=== PATIENT | male | born 1995 | race Caucasian/White ===

== ENCOUNTER 2023-01-15 20:49 | Emergency (ER) | payer OTHER ==
[2023-01-15] MEDS ORDERED: diphenhydrAMINE 50 MG/ML VIAL ONE (21:05)
[2023-01-15] MEDS ORDERED: Famotidine/PF 20 mg/2ml Vial ONE (21:05)
[2023-01-15] MEDS ORDERED: Dexamethasone 10 MG/ML VIAL ONE (21:06)
[2023-01-15] MEDS ORDERED: Ketorolac Tromethamine 30 MG/ML VIAL ONE (21:36)
== END 2023-01-15 23:46 | disposition home or self-care (01) ==
LOC: BURERS 20:49
DX: T78.40XA Allergy, unspecified, initial encounter (principal)
CPT/HCPCS: 96374; 96375; 96376; J1100; J1200; J1885; S0028